=== PATIENT | female | born 1970 | race Asian ===

== ENCOUNTER 2021-10-03 10:21 | Day surgery (SDC) | payer OTHER, SELFPAY ==
[~2021-10-03] VITALS: Ht 157.5 cm; Wt 71.7 kg
[2021-10-03] MEDS ORDERED: fentaNYL citrate 0.05 MG/ML VIAL ONE (12:31)
[2021-10-03] MEDS ORDERED: LIDOCAINE 2% 100 MG/5 ML UJET TP ONE (12:32)
[2021-10-03] MEDS ORDERED: fentaNYL citrate 0.05 MG/ML VIAL IVP ONE (13:00)
== END 2021-10-03 13:38 | disposition home or self-care (01) ==
LOC: MOR 10:21 → MMU 10:22 → MOR 13:38
PROVIDERS: ATTEND Internal Medicine Gastroenterology
DX: Z12.11 Encounter for screening for malignant neoplasm of colon (principal); I10 Essential (primary) hypertension; Z90.710 Acquired absence of both cervix and uterus; Z20.822 Contact with and (suspected) exposure to COVID-19; Z79.899 Other long term (current) drug therapy
CPT/HCPCS: 45378; 87426; J3010

== ENCOUNTER 2021-11-13 17:32 | Inpatient (IN) | payer OTHER ==
[~2021-11-13] VITALS: Ht 157.5 cm; Wt 70.8 kg
[~2021-11-13 17:32] MED LIST: AMLO5TAB PO; CIPR500T4 PO; IBUP-2213 PO; LOSA100T1 PO; PROM25SU PO; TRI48 PO; [UNRECOGNIZED DRUG - CODE] PO
[2021-11-13 17:47] VITALS: BP 128/69
[2021-11-13 19:43] LABS: BASOPHILS % (AUTO) 0.4 % (0.0-2.0); EOSINOPHILS % (AUTO) 0.8 % (0.0-4.0); HEMATOCRIT 38.6 % (36-48); HEMOGLOBIN 12.7 g/dL (12.0-16.0); LYMPHOCYTES # (AUTO) 0.9 K/uL (2.5-16.5); LYMPHOCYTES % (AUTO) 16.2 % (20.5-51.1); MEAN CORPUSCULAR HEMOGLOBIN 31 pg (27-31); MEAN CORPUSCULAR HGB CONC 33 g/dL (33-37); MEAN CORPUSCULAR VOLUME 94.8 fL (80-94); MONOCYTES # (AUTO) 0.6 K/uL (0.8-1.0); MONOCYTES % (AUTO) 10.6 % (1.7-9.3); NEUTROPHILS # (AUTO) 3.8 K/uL (1.8-7.7); PLATELET COUNT (AUTO) 529 K/uL (140-450); RED BLOOD CELL COUNT(AUTO) 4.07 MIL/uL (4.20-5.40); RED CELL DISTRIBUTION WIDTH 13.2 % (11.6-13.7); WHITE BLOOD COUNT (AUTO) 5.3 K/uL (4.8-10.8)
[2021-11-13 20:10] LABS: ALBUMIN 3.8 g/dL (3.4-5.0); ANION GAP 12.5 (8-16); CARBON DIOXIDE 27.7 mmol/L (21-32); CREATININE 0.7 mg/dL (0.6-1.3); POTASSIUM 4.2 mmol/L (3.5-5.1); TOTAL BILIRUBIN 0.4 mg/dL (0.0-1.0)
[2021-11-13] MEDS ORDERED: MEROPENEM 1,000 MG in NACL 0.9% 50 ML IV STA (21:02)
[2021-11-13] MEDS ORDERED: NACL 0.9% 2,000 ML IV ONE (21:05)
[2021-11-13] MEDS ORDERED: HYDROcodone/APAP 5/325 MG 1 TAB TAB PO PRN (21:45)
[2021-11-13] MEDS ORDERED: ONDANSETRON 4 MG/2 ML VIAL IVP PRN (21:45)
[2021-11-13] MEDS ORDERED: ACETAMINOPHEN 325 MG TAB PO PRN (21:45)
[2021-11-13] MEDS ORDERED: LORazepam 2 MG/ML VIAL IVP PRN (21:45)
--- NOTE | 2021-11-13 21:45 | NUR ---
PT TAKEN TO ER BED 06
[2021-11-13] MEDS ORDERED: MEROPENEM 1,000 MG VIAL IV ONE (22:35)
[2021-11-14 01:34] LABS: APPEARANCE,URINE CLEAR (CLEAR); BILIRUBIN,URINE NEGATIVE (NEGATIVE); BLOOD, URINE TRACE-L (NEGATIVE); COLOR,URINE YELLOW (YELLOW); LEUKOCYTE ESTERASE ,URINE NEGATIVE (NEGATIVE); NITRITE, URINE NEGATIVE (NEGATIVE); PH,URINE 6.5 (5.0-9.0); UGLUCOSE NEGATIVE (NEGATIVE)
--- NOTE | 2021-11-14 02:00 | NUR ---
ADMIT ORDERS RECIEVED BY DR HESS. RICARDO SWAB IS DONE. WOUND CULTURE IS DONE. AWAITING BED ASSIG
--- NOTE | 2021-11-14 02:20 | NUR ---
BED ASSIG GIVEN, PATIENT BELONGINGS PACKED. WILL REPORT OFF TO FERNANDA LEMOS AT BEDSIDE
--- NOTE | 2021-11-14 02:21 | NUR ---
Patient will be admitted to care of DR HESS. Admited to MED SURG. Will go to [id number]. Belongings list completed. Report to ZOHREH.
--- NOTE | 2021-11-14 02:40 | NUR ---
RECIEVED PT FROM ER / GURNEY , AMBULATES TO BED , W/ IV SITE INTACT AND PATENT , NO COMPLAIN MADE , ADMISSION ASSESSMENT - DONE . PLAN OF CARE DISCUSSED AND VERBALIZED UNDERSTANDING , WILL CONT. TO MONITOR .
[2021-11-14] MEDS ORDERED: NACL 0.9% IV SCH ×5 (03:00→09:00)
[2021-11-14] MEDS ORDERED: TIGECYCLINE IV SCH ×5 (03:00→09:00)
[2021-11-14 03:50] LABS: RBC,URINE 0-5 /HPF (0-5); WBC,URINE 0-5 /HPF (0-5)
[2021-11-14 04:00] VITALS: BP 130/77
--- NOTE | 2021-11-14 04:03 | NUR ---
WAITING AGILE COACH TO GIVE TYGACIL Addendum: 11/14/21 at 7 by Uma Schilling RN PER AGILE COACH - WE DON'T HAVE AVAILABLE TYGACIL - RADHA ROSALES SUGGESTED TO ME TO CALL PHARMACIST TO MOVE THE TIME FREQ. Addendum: 11/14/21 at 8 by Uma Schilling RN PER PHARMACIST HE WILL MOVE THE TIME BETWEEN 0800 - 0830 .WILL ENDORSE .
--- NOTE | 2021-11-14 06:00 | NUR ---
ROUNDS , NO COMPLAIN MADE .
[2021-11-14 06:24] LABS: ALBUMIN 2.8 g/dL (3.4-5.0); ANION GAP 7.7 (8-16); CARBON DIOXIDE 27.9 mmol/L (21-32); CREATININE 0.6 mg/dL (0.6-1.3); MAGNESIUM 2.2 mg/dL (1.8-2.4); POTASSIUM 3.6 mmol/L (3.5-5.1); TOTAL BILIRUBIN 0.4 mg/dL (0.0-1.0)
[2021-11-14 06:25] LABS: BASOPHILS % (AUTO) 0.2 % (0.0-2.0); EOSINOPHILS # (AUTO) 0.1 K/uL (0-0.4); EOSINOPHILS % (AUTO) 1.3 % (0.0-4.0); HEMOGLOBIN 11.2 g/dL (12.0-16.0); LYMPHOCYTES # (AUTO) 0.9 K/uL (2.5-16.5); LYMPHOCYTES % (AUTO) 17.8 % (20.5-51.1); MEAN CORPUSCULAR HEMOGLOBIN 32 pg (27-31); MEAN CORPUSCULAR HGB CONC 34 g/dL (33-37); MEAN CORPUSCULAR VOLUME 93.1 fL (80-94); MONOCYTES # (AUTO) 0.8 K/uL (0.8-1.0); MONOCYTES % (AUTO) 15.5 % (1.7-9.3); NEUTROPHILS # (AUTO) 3.3 K/uL (1.8-7.7); NEUTROPHILS % (AUTO) 65.2 % (42.2-75.2); PLATELET COUNT (AUTO) 496 K/uL (140-450); RED BLOOD CELL COUNT(AUTO) 3.55 MIL/uL (4.20-5.40); RED CELL DISTRIBUTION WIDTH 13.2 % (11.6-13.7)
--- NOTE | 2021-11-14 07:33 | NUR ---
ENDORSED - PT - STABLE Addendum: 11/14/21 at 0822 by Uma Schilling RN I ENDORSED TO NURSE HE HAVE TO GIVE TYGACIL INITIALLY - BEC I DID NOT GIVE IT DUE TO NO AVAILABLE IN HOUSE PHARMACIST - THE NURSE VERBALIZES UNDERSTANDING .
[2021-11-14] MEDS ORDERED: MEROPENEM 1,000 MG in NACL 0.9% 50 ML IV SCH (09:00)
[2021-11-14] MEDS: ENOXAPARIN 40 MG/0.4 ML SYR SUBQ SCH (09:43)
--- NOTE | 2021-11-14 12:15 | NUR ---
PATIENT HAS BEEN SCREENED AND CATEGORIZED LOW NUTRITION RISK. PATIENT WILL BE SEEN WITHIN 7 DAYS OF ADMISSION. 11/20/[address]
--- NOTE | 2021-11-14 16:19 | NUR ---
DC [age] YRS OLD FEMALE PATIENT WAS ADMITTED FROM HOME WITH A DX OF SEPSIS. PATIENT HAS A HX OF HTN AND HLD. PATIENT WAS RECENTLY DISCHARGED FROM [facility] 11/09. PT WAS SENT BY HER PCP FOR PICC LINE INSERTION. PCP RECOMMENDED TO RECEIVE IV ABX PRIOR TO MRI. CXR SUGGESTED VASCULAR CONGESTION. RAPID COVID TEST NEGATIVE. CT ABD/PELVIS SHOWED 3.1cm HEPATIC MASS. ORDERED LIVER US. URINE AND BLOOD CULTURE PENDING. ADMINISTERED IVF, IV ABX ROCEPHIN . CONSULTED WITH ID. DC PLAN TO GO HOME WHEN STABLE. CM TO FOLLOW
--- NOTE | 2021-11-14 19:25 | NUR ---
RECEIVED PATIENT FROM SURJIT LEMOS. PATIENT IN BED ON NPO STATUS UNTIL CT SCAN HAS BEEN COMPLETED PER MD ORDERS. PATIENT IN BED ALERT AND ORIENTED X [address] [facility]. PATIENT IV SITE CLEAN AND PATENT. PATIENT DENIES ANY PAIN/DISCOMFORT AT THIS TIME. PATIENTS BED IS AT THE LOWEST LEVEL AND SIDE RAILS UP FOR ASSISTANTS AND SAFETY. PATIENT ON ROOM AIR WITHOUT RESPIRATORY. CALL LIGHT IS WITHIN REACH AND ENCOURAGED TO CALL FOR ALL ASSISTANCE AND NEEDS. [email or web address]
[2021-11-14 20:00] VITALS: BP 134/73
--- NOTE | 2021-11-14 20:42 | NUR ---
PATIENT WAS TRANSFER TO RADIOLOGY FOR ULTRASOUND OF THE ABDOMEN. [email or web address]
--- NOTE | 2021-11-14 21:20 | NUR ---
PATIENT WAS RETURNED TO HER ROOM FROM ULTRASOUND COMPLETED. PATIENT WAS ABLE TO EAT DINNER AND ATE 100%. VITAL SIGNS WERE TAKEN AND STABLE. NO COMPLAINT OF PAIN/DISCOMFORT AT THIS TIME. PATIENT REQUESTED SOCKS TO KEEP WARM AND WATER FOR HYDRATION. BED WAS IN THE LOWEST POSITION, SIDE RAILS X 2 FOR ADJUSTMENTS, AND CALL LIGHT IN REACH. PATIENT WAS ENCOURAGED TO CALL OF ALL ASSISTED NEEDS. PATIENT UNDERSTOOD AND AGREED. [email or web address]
--- NOTE | 2021-11-14 23:25 | NUR ---
PATIENT NOTED IN BED ASLEEP. NO NOTED ACUTE RESPIRATORY DISTRESS. BREATHING EVEN AND UNLABORED. CALL LIGHT WITHIN REACH. [email or web address]
--- NOTE | 2021-11-15 01:25 | NUR ---
PATIENT REMAINS IN BED ASLEEP. NO NOTED ACUTE RESPIRATORY DISTRESS. BREATHING EVEN AND UNLABORED. CALL LIGHT WITHIN REACH. [email or web address]
--- NOTE | 2021-11-15 07:36 | NUR ---
GAVE SHIFT REPORT TO SAWYER LEMOS FOR CONTINUITY OF CARE. PATIENT REMAINS IN BED ASLEEP. PATIENT IS STABLE. [email or web address]
--- NOTE | 2021-11-15 07:40 | NUR ---
RECEIVED PATIENT REPORT FROM SUPERVISOR LOGGING NURSE FOR CONTINUITY OF CARE. PT IS AOX4, ABLE TO MAKE NEEDS KNOWN. RESPIRATIONS EVEN AND UNLABORED. ON ROOM WITH NO RESPIRATORY DISTRESS NOTED. SKIN IS WARM, DRY, AND INTACT. IV SITE ON RIGHT WRIST 20G. SALINE LOCKED. INTACT AND PATENT. PT IS NOT COMPLAINING OF PAIN AT THIS MOMENT. PLAN OF CARE DISCUSSED. SAFETY PRECAUTIONS IN PLACE. CALL LIGHT WITHIN REACH. WILL CONTINUE TO MONITOR.
[2021-11-15 08:00] VITALS: BP 120/67
[2021-11-15] MEDS: amLODIPine 5 MG TAB PO SCH (09:43)
[2021-11-15] MEDS: ENOXAPARIN 40 MG/0.4 ML SYR SUBQ SCH (09:43)
[2021-11-15] MEDS: FENOFIBRATE 48 MG TAB PO SCH (09:43)
[2021-11-15] MEDS: LOSARTAN 50 MG TAB PO SCH (09:43)
--- NOTE | 2021-11-15 09:55 | NUR ---
ALL SCHEDULED MEDS GIVEN. PT IS STABLE. NO DISTRESS NOTED. WILL CONTINUE TO MONITOR.
--- NOTE | 2021-11-15 11:45 | NUR ---
DISCUSSED PLAN OF CARE WITH .
[2021-11-15 16:00] VITALS: BP 128/71
--- NOTE | 2021-11-15 16:20 | NUR ---
ALL SCHEDULED MEDS GIVEN. PT IS STABLE. NO DISTRESS NOTED. WILL CONTINUE TO MONITOR.
--- NOTE | 2021-11-15 16:35 | NUR ---
OBTAINED PATIENT AND MD CONSENT FOR CT ABDOMEN W/ CONTRAST.
--- NOTE | 2021-11-15 19:29 | NUR ---
ENDORSED TO CLINICAL SAFETY MANAGER NURSE FOR CONTINUITY OF CARE. PT IS STABLE.
[2021-11-16] VITALS: BP 131/76
--- NOTE | 2021-11-16 01:00 | NUR ---
SLEEPING IN BED COMFORTABLY,BREATHING EVEN AND UNLABORED,NO DISTRESS NOTED.
--- NOTE | 2021-11-16 03:00 | NUR ---
PT REQUESTED FO JELLO AND HOT WATER, NO COMPLAIN OF PAIN,NO DISTRESS NOTED.
--- NOTE | 2021-11-16 06:01 | NUR ---
PATIENT ASLEEP,BREATHING EVEN AND UNLABORED , NO DISTRESS NOTED.
[2021-11-16 06:02] LABS: BASOPHILS % (AUTO) 0.4 % (0.0-2.0); EOSINOPHILS # (AUTO) 0.1 K/uL (0-0.4); EOSINOPHILS % (AUTO) 1.2 % (0.0-4.0); HEMATOCRIT 36.2 % (36-48); HEMOGLOBIN 12.1 g/dL (12.0-16.0); LYMPHOCYTES # (AUTO) 0.7 K/uL (2.5-16.5); MEAN CORPUSCULAR HEMOGLOBIN 31 pg (27-31); MEAN CORPUSCULAR HGB CONC 33 g/dL (33-37); MONOCYTES # (AUTO) 0.4 K/uL (0.8-1.0); NEUTROPHILS # (AUTO) 3.3 K/uL (1.8-7.7); NEUTROPHILS % (AUTO) 73.4 % (42.2-75.2); PLATELET COUNT (AUTO) 593 K/uL (140-450); RED BLOOD CELL COUNT(AUTO) 3.94 MIL/uL (4.20-5.40); RED CELL DISTRIBUTION WIDTH 12.7 % (11.6-13.7); WHITE BLOOD COUNT (AUTO) 4.4 K/uL (4.8-10.8)
[2021-11-16 06:17] LABS: ANION GAP 10.6 (8-16); CREATININE 0.6 mg/dL (0.6-1.3); POTASSIUM 3.6 mmol/L (3.5-5.1)
--- NOTE | 2021-11-16 07:38 | NUR ---
ENDORSED PT TO AM NURSE FOR CONTINUITY OF CARE.PT IS STABLE.
--- NOTE | 2021-11-16 07:40 | NUR ---
RECEIVED PATIENT REPORT FROM METER TESTER PRIMARY NURSE FOR CONTINUITY OF CARE. PT IS AOX4, ABLE TO MAKE NEEDS KNOWN. RESPIRATIONS EVEN AND UNLABORED. ON ROOM WITH NO RESPIRATORY DISTRESS NOTED. SKIN IS WARM, DRY, AND INTACT. IV SITE ON RIGHT AC 20G. SALINE LOCKED. INTACT AND PATENT. PT IS NOT COMPLAINING OF PAIN AT THIS MOMENT. PLAN OF CARE DISCUSSED. SAFETY PRECAUTIONS IN PLACE. CALL LIGHT WITHIN REACH. WILL CONTINUE TO MONITOR.
[2021-11-16 08:00] VITALS: BP 120/69
[2021-11-16] MEDS: FENOFIBRATE 48 MG TAB PO SCH (09:03)
[2021-11-16] MEDS: LOSARTAN 50 MG TAB PO SCH (09:03)
[2021-11-16] MEDS: amLODIPine 5 MG TAB PO SCH (09:04)
[2021-11-16] MEDS: ENOXAPARIN 40 MG/0.4 ML SYR SUBQ SCH (09:04)
--- NOTE | 2021-11-16 09:40 | NUR ---
ALL SCHEDULED MEDS GIVEN. PT IS STABLE. NO DISTRESS NOTED. WILL CONTINUE TO MONITOR.
--- NOTE | 2021-11-16 12:10 | NUR ---
CHECKED ON PATIENT. PT IS STABLE. NO DISTRESS NOTED. WILL CONTINUE TO MONITOR.
--- NOTE | 2021-11-16 15:54 | NUR ---
PATIENT REQUESTING TO GO AMA. EDUCATED THE RISKS OF GOING AMA BUT PATIENT INSIST ON GOING AMA. NOTIFIED MD AND IS AWARE OF THE SITUATION.
--- NOTE | 2021-11-16 16:11 | NUR ---
PATIENT SIGNED AMA FORM AND DISCHARGED OFF THE UNIT. IV AND ID BAND WAS REMOVED. PT WAS STABLE PRIOR TO DISCHARGE
--- NOTE | 2021-11-16 19:35 | NUR ---
COMPLETED RIR FORM FOR PATIENT
== END 2021-11-16 16:10 | disposition left against medical advice (07) | DRG 720 ==
LOC: MED 17:32 → MMU 21:44 → OBSVTOIN 21:44 → MMU 11-14 00:03
PROVIDERS: ADMIT Internal Medicine; ATTEND Internal Medicine
DX: A41.59 Other Gram-negative sepsis (principal); K75.0 Abscess of liver; C22.8 Malignant neoplasm of liver, primary, unspecified as to type; R16.0 Hepatomegaly, not elsewhere classified; E78.5 Hyperlipidemia, unspecified; I10 Essential (primary) hypertension; Z20.822 Contact with and (suspected) exposure to COVID-19; Z79.899 Other long term (current) drug therapy
CPT/HCPCS: 36415; 74170; 76705; 80048; 80053; 81001; 83605; 83690; 83735; 85025; 87040; 87081; 87086; 96361; 96365; 99291; J0696; J1650; J2185; J3243; J7030; J7060; Q0092; Q9967

== ENCOUNTER 2022-10-12 11:49 | Emergency (ER) | payer OTHER ==
[~2022-10-12] VITALS: Ht 160 cm; Wt 73.0 kg
[~2022-10-12 11:49] MED LIST changes: -LOSA100T1 PO; +LOSA100T2 PO; -[UNRECOGNIZED DRUG - CODE] PO
[2022-10-12 12:00] VITALS: BP 152/91
[2022-10-12] MEDS ORDERED: KETOROLAC 30 MG/ML VIAL IM ONE (16:25)
[2022-10-12] MEDS ORDERED: oxyCODONE/APAP 5/325 MG 1 TAB TAB PO ONE (16:25)
[2022-10-12] MEDS ORDERED: IBUP-2213 PO (16:41)
[2022-10-12] MEDS ORDERED: ACET-5629 PO (16:41)
[2022-10-12] MEDS ORDERED: LID5T TP (16:41)
[2022-10-12] MEDS ORDERED: METH-1681 PO (16:41)
[2022-10-12] MEDS ORDERED: DICL20GE TP (16:41)
--- NOTE | 2022-10-12 16:54 | NUR ---
ASSUMED PATIENT CARE FOR DC INSTRUCTIONS, Patient discharged with v/s stable. Written and verbal after care instructions given and explained. Patient alert, oriented and verbalized understanding of instructions. Ambulatory with steady gait. All questions addressed prior to discharge. ID band removed. Patient advised to follow up with PMD. Rx of PERCOCET, VOLTAREN, IBUPROFEN, LIDODERM, ROBAXIN given. Patient educated on indication of medication including possible reaction and side effects. Opportunity to ask questions provided and answered.
[2022-10-12 16:56] VITALS: BP 144/89
== END 2022-10-12 16:56 | disposition home or self-care (01) ==
LOC: MED 11:49
DX: S76.011A Strain of muscle, fascia and tendon of right hip, initial encounter (principal); I10 Essential (primary) hypertension; Z79.899 Other long term (current) drug therapy; X58.XXXA Exposure to other specified factors, initial encounter; Y93.89 Activity, other specified; Y92.89 Other specified places as the place of occurrence of the external cause; Y99.8 Other external cause status
CPT/HCPCS: 96372; 99283; J1885